=== PATIENT | male | born 1965 | race Caucasian/White ===

== ENCOUNTER 2018-10-09 09:17 | Day surgery (SDC) | payer BC ==
[~2018-10-09 09:17] MED LIST: LIDOCAINE HCL 1% MPF 30 SOL ONE; PROPOFOL 500 MG/50 ML EMU IV ONE
[2018-10-09 11:22] VITALS: BP 164/99; PULSE 61; RESP 18; TEMP 97.4; O2SAT 98
== END 2018-10-09 11:35 | disposition home or self-care (01) ==
LOC: SURG 09:17
PROVIDERS: ATTEND Surgery
DX: Z12.11 Encounter for screening for malignant neoplasm of colon (principal); D12.2 Benign neoplasm of ascending colon
CPT/HCPCS: 99001; J2001; J2704